=== PATIENT | male | born 1970 | race Caucasian/White ===

== ENCOUNTER 2020-02-08 12:23 | Observation (INO) ==
[2020-02-08] MEDS ORDERED: NORMAL SALINE 1,000 ML IV ONE (12:41)
[2020-02-08] MEDS ORDERED: DIATRIZOATE MEGLUMINE, SODIUM 30 ML BTL PO ONE (12:41)
[2020-02-08] MEDS ORDERED: MORPHINE SULFATE 2 MG/ML DISP.SYRIN IV ONE ×2 (12:41→18:03)
--- NOTE | 2020-02-08 12:52 | ERNOTE ---
Abdominal HPI - Narrative Date of Service: 02/08/20 - General Chief Complaint: Abdominal Pain Time Seen by Provider: 02/08/20 12:32 Source: patient Exam Limitations: no limitations - Immun/Allergies/Home Medications Immunizatons: IMMUNIZATION HX Immunizations Up to Date Yes History of Influenza Vaccine No Allergies/Adverse Reactions: Allergies latex Allergy (Verified 02/08/20 12:30) swelling, itchiness when worn for prolonged period of time Home Medications: HOME MEDICATIONS NK 02/08/20 [Last Taken Unknown] - History of Present Illness Narrative: Patient presents to the ED for RLQ pain. This pain started last night around midnight and has been gradually progressive. RLQ pain. Worse with palpation and going over bumps in the car. Nausea with it and progressive anorexia. Never had it before. Has not seen anyone else for this. No vomiting but nausea noted. No CP or SOB. No dysuria. Timing: constant, getting worse Quality: moderate Activities at Onset: none Modifying Factors - (Improves): Present: other - rest Modifying Factors - (Worsens): Present: other - palpation Associated Symptoms: Present: nausea. Absent: headache, back pain, fever/chills Prior Abdominal Problems: Present: none Prior Treatment: Absent: recently seen Review of Systems - Review of Systems Constitutional: Absent: fever EYE: Present: no symptoms reported ENT: Present: no symptoms reported Respiratory: Absent: shortness of breath Cardiology: Absent: chest pain Gastrointestinal/Abdominal: Present: abdominal pain Genitourinary: Absent: dysuria All Other Systems: All systems neg except as marked Medical History (Last Reviewed 02/08/20 @ 12:50 by Jono Maldonado MD) Undescended left testicle Surgical History: Surgical History (Last Reviewed 02/08/20 @ 12:50 by Jono Maldonado MD) History of orchiectomy, unilateral Presence of surgical screw in left hand spiral fracture, 3rd metacarpal Family History: Family History (Last Reviewed 02/08/20 @ 12:50 by Jono Maldonado MD) Father Prostate cancer Mother Heart disease Social History: (Last Reviewed 02/08/20 @ 12:50 by Jono Maldonado MD) Social History: Marital status: Tobacco: Smoking Status: Current every day smoker tobacco type: cigarettes Smoking cigarettes per day: 10 Alcohol: alcohol intake: current Alcohol type: beer alcohol intake frequency: a few times a month Substance Use: substance use type: does not use Dietary Habits: caffeine: Yes Physical Exam - Physical Exam General Appearance: Present: alert, no apparent distress Head Exam: Present: normal inspection, no evidence of injury Eye Exam: Normal inspection: bilateral, PERRL: bilateral Ears, Nose, Throat: Present: normal ENT inspection Neck: Present: normal inspection Respiratory: Present: no respiratory distress, normal breath sounds, no accessory muscle use, lungs clear Cardiovascular/Chest: Present: regular rate, rhythm, normal peripheral pulses Gastrointestinal/Abdominal: Present: normal bowel sounds, tenderness, rebound, other - RLQ pain. Absent: abnormal bowel sounds Back Exam: Absent: CVA tenderness (R), CVA tenderness (L) Extremity Exam: Present: normal inspection Neurological Exam: Present: alert, no motor/sensory deficits Skin Exam: Present: normal color, warm/dry Progress - Results and Orders Patient's Lab Results:: I have reviewed the patient's lab results. - Vital Signs Patient's Vital Signs:: I have reviewed the patient's vital signs. Vital Signs: Vital Signs 02/08/20 12:27 Temperature 36.9 C Pulse Rate 99 Respiratory Rate 14 Blood Pressure 143/89 H O2 Sat by Pulse Oximetry 96 - CT/Ultrasound CT/Ultrasound Narrative: I reviewed official radiology report for CT abd/pelvis - Progress/Reassessment Chief Complaint: Abdominal Pain Progress Note-Subjective: 02/08/20 15:43 Acute appendicitis. Uncomplicated. Patient informed. Dr Rodriguez in [facility] OR now, informed. Await General Surgery eval here. Departure Clinical Impression: Acute appendicitis - Departure Disposition: Still a patient Condition: Stable
[2020-02-08 12:56] LABS: Hematocrit 49.4 % (42.0-52.0); Hemoglobin 16.3 gm/dL (13.5-18.0); Mean Cell Volume 91.1 fl (78-100); Mean Corpuscular Hemoglobin 30.1 pg (27-31); Mean Platelet Volume 8.9 fl (8-11.3); Neutrophil # 12.9 K/mm3 (1.3-6.0); Neutrophil % 81.4 % (42-75.0); Platelet Count 294 K/mm3 (150-450); Red Blood Count 5.42 M/mm3 (4.7-6.0); Red Cell Distribution Width 13.9 % (11.5-14.0); White Blood Count 15.9 K/mm3 (4.0-10.5)
[2020-02-08] MEDS ORDERED: ONDANSETRON HCL/PF 2 MG/ML VIAL ONE ×2 (13:09→20:57)
[2020-02-08 13:11] LABS: Albumin * 3.9 gm/dl (3.4-5.0); Anion Gap 12.5 mmol/L (6.8-13.8); BUN/Creatinine Ratio 18.6 (9.0-21.6); Bilirubin, Total 0.7 mg/dL (0.0-1.1); Ca. Corrected For Albumin 8.8 mg/dL (8.4-10.2); Carbon Dioxide 26.3 mmol/L (24-32.6); Potassium 3.8 mmol/L (3.4-4.6); Total Protein 7.2 gm/dL (6.2-8.2)
[2020-02-08 14:47] LABS: Urine Color Yellow
[2020-02-08 14:49] LABS: Urine Appearance Clear (CLEAR); Urine Bilirubin Negative (NEGATIVE); Urine Blood Negative /ul (NEGATIVE); Urine Ketone Negative (NEGATIVE)
[2020-02-08 14:50] LABS: Urine Nitrite Negative (NEGATIVE); Urine Protein Negative (NEGATIVE); Urine Specific Gravity 1.025 SP.GR. (1.005-1.030); Urine Urobilinogen Normal (NORMAL)
[2020-02-08 14:51] LABS: Urine Bacteria None Seen; Urine RBC 0-5 /hpf (0-5); Urine WBC 0-5 /hpf (0-5)
[2020-02-08] MEDS ORDERED: MORPHINE SULFATE 2 MG/ML DISP.SYRIN ONE (18:02)
--- NOTE | 2020-02-08 20:50 | HP ---
Chief Complaint - Chief Complaint Date of Service: 02/08/20 Time of Service: 20:42 Chief Complaint: acute appendicitis History of Present Illness: Started with abdominal pain today. Has become more severe and migrated to RLQ. Elevated WBC, direct and rebound tenderness RLQ and CT scan evidence of acute appendicitis. Medical History (Last Reviewed 02/08/20 @ 20:44 by Noé Rodriguez MD) Undescended left testicle Surgical History: Surgical History (Last Reviewed 02/08/20 @ 20:44 by Noé Rodriguez MD) History of orchiectomy, unilateral Presence of surgical screw in left hand spiral fracture, 3rd metacarpal Family History: Family History (Last Reviewed 02/08/20 @ 20:44 by Noé Rodriguez MD) Father Prostate cancer Mother Heart disease Social History: (Last Reviewed 02/08/20 @ 20:44 by Noé Rodriguez MD) Social History: Marital status: Tobacco: Smoking Status: Current every day smoker tobacco type: cigarettes Smoking cigarettes per day: 10 Alcohol: alcohol intake: current Alcohol type: beer alcohol intake frequency: a few times a month Substance Use: substance use type: does not use Dietary Habits: caffeine: Yes Review Of Systems (GEN) - Review of Systems Generalized/Overall Review: Present: Malaise. Absent: Chills, Fever EENTM: Present: No Symptoms Reported Respiratory: Present: Cough, Other - from cigarettes Cardiac: Absent: Chest Pain, Palpitations Abdominal: Present: Nausea, Abdominal Pain, Other - Heartburn, takes ranitidine prn. Absent: Vomiting Genitourinary: Present: No Symptoms Reported Musculoskeletal: Present: No Symptoms Reported Neurological: Present: No Symptoms Reported Skin: Present: No Symptoms Reported Endocrine: Present: No Symptoms Reported Immunizations: IMMUNIZATION HX Immunizations Up to Date Yes History of Influenza Vaccine No Allergies/Adverse Reactions: Allergies Allergy/AdvReac Type Severity Reaction Status Date / Time latex Allergy swelling, Verified 02/08/20 12:30 itchiness when worn for prolonged period of time Home Medications: HOME MEDICATIONS NK 02/08/20 [Last Taken Unknown] Exam - Exam Vital Signs: Vital Signs - Last Taken Temp 37.4 C 02/08/20 20:28 Pulse 82 02/08/20 20:28 Resp 18 02/08/20 20:28 BP 129/76 02/08/20 20:28 Pulse Ox 97 06/02/20 20:28 Constitutional: Present: Alert, Oriented x3, Cooperative, Well developed, Mild distress, Obese ENT Exam: Present: normal ENT inspection, other - Mallampati 3 airway Eye Exam: bilateral eye: normal inspection Neck: Present: full range of motion, normal inspection Respiratory: Present: lungs clear, other - patient will not leave mask on Cardiovascular/Chest: Present: regular rate, rhythm, no murmur Abdomen: Present: other - tender RLQ with rebound and guarding Extremity: Present: normal range of motion, no pedal edema, no calf tenderness Skin Exam: Present: normal color, warm/dry Neurologic: Present: telecommunications facility examiner II-XII nml as tested, normal cerebellar test, alert, oriented x 3 Appearance: Present: appropriate appearance, appropriate insight Eye contact: Present: cooperative Thoughts: Present: normal thought pattern Diagnostic Studies: Abnormal Lab Results 02/08/20 02/08/20 Range/Units 12:45 12:45 WBC 15.9 H (4.0-10.5) K/mm3 Immature Gran % (Auto) 0.50 H (0.001-0.429) % Immature Gran # (Auto) 0.08 H (0.000-0.0310) K/mm3 Neutrophils % 81.4 H (42-75.0) % Lymphocytes % 9.2 L (20-51) % Neutrophils # 12.9 H (1.3-6.0) K/mm3 Lymphocytes # 1.47 L (1.5-3.5) k/mm3 Monocytes # 1.1 H (0.0-1.0) k/mm3 Random Glucose 114 H (70-110) mg/dL Laboratory Results WBC 15.9 K/mm3 (4.0-10.5) H 02/08/20 12:45 RBC 5.42 M/mm3 (4.7-6.0) 02/08/20 12:45 Hgb 16.3 gm/dL (13.5-18.0) 02/08/20 12:45 Hct 49.4 % (42.0-52.0) 02/08/20 12:45 MCV 91.1 fl (78-100) 02/08/20 12:45 MCH 30.1 pg (27-31) 02/08/20 12:45 MCHC 33.0 g/dl (32-36) 02/08/20 12:45 RDW 13.9 % (11.5-14.0) 02/08/20 12:45 Plt Count 294 K/mm3 (150-450) 02/08/20 12:45 MPV 8.9 fl (8-11.3) 02/08/20 12:45 Immature Gran % (Auto) 0.50 % (0.001-0.429) H 02/08/20 12:45 Immature Gran # (Auto) 0.08 K/mm3 (0.000-0.0310) H 02/08/20 12:45 Neutrophils % 81.4 % (42-75.0) H 02/08/20 12:45 Lymphocytes % 9.2 % (20-51) L 02/08/20 12:45 Monocytes % 7.0 % (0.0-9) 02/08/20 12:45 Eosinophils % 1.3 % (0.0-3.0) 02/08/20 12:45 Basophils % 0.6 % (0.0-1.0) 02/08/20 12:45 Nucleated RBC % 0.0 k/mm3 (0-1) 02/08/20 12:45 Neutrophils # 12.9 K/mm3 (1.3-6.0) H 02/08/20 12:45 Lymphocytes # 1.47 k/mm3 (1.5-3.5) L 02/08/20 12:45 Monocytes # 1.1 k/mm3 (0.0-1.0) H 02/08/20 12:45 Eosinophils # 0.2 k/mm3 (0.0-0.7) 02/08/20 12:45 Absolute Basophils 0.1 k/mm3 (0.0-0.1) 02/08/20 12:45 Sodium 137 mmol/L (132-142) 02/08/20 12:45 Plasma Sodium 137 mmol/L (130-142) 02/08/20 12:45 Potassium 3.8 mmol/L (3.4-4.6) 02/08/20 12:45 Chloride 102 mmol/L (97-106) 02/08/20 12:45 Carbon Dioxide 26.3 mmol/L (24-32.6) 06/02/20 12:45 Anion Gap 12.5 mmol/L (6.8-13.8) 02/08/20 12:45 BUN 19 mg/dL (6-23) 02/08/20 12:45 Creatinine 1.02 mg/dL (0.4-1.4) 02/08/20 12:45 Est GFR (Non-Af Amer) 83 mL/min (60-130) 02/08/20 12:45 BUN/Creatinine Ratio 18.6 (9.0-21.6) 02/08/20 12:45 Random Glucose 114 mg/dL (70-110) H 02/08/20 12:45 Calcium 9.0 mg/dL (7.9-10.9) 02/08/20 12:45 Calcium Adj for Albumin 8.8 mg/dL (8.4-10.2) 02/08/20 12:45 Total Bilirubin 0.7 mg/dL (0.0-1.1) 02/08/20 12:45 AST 16 U/L (0-48) 02/08/20 12:45 ALT 29 U/L (19-67) 02/08/20 12:45 Alkaline Phosphatase 74 U/L (50-170) 02/08/20 12:45 Total Protein 7.2 gm/dL (6.2-8.2) 02/08/20 12:45 Albumin 3.9 gm/dl (3.4-5.0) 02/08/20 12:45 Amylase 33 U/L (25-115) 02/08/20 12:45 Lipase 96 U/L (73-393) 02/08/20 12:45 Urine Color Yellow 02/08/20 14:20 Urine Appearance Clear (CLEAR) 02/08/20 14:20 Urine pH 6.0 pH (5.0-7.0) 02/08/20 14:20 Ur Specific [place] 1.025 SP.GR. (1.005-1.030) 02/08/20 14:20 Urine Protein Negative mg/dL (NEGATIVE) 02/08/20 14:20 Urine Glucose (UA) Negative mg/dL (NEGATIVE) 02/08/20 14:20 Urine Ketones Negative mg/dL (NEGATIVE) 02/08/20 14:20 Urine Blood Negative /ul (NEGATIVE) 02/08/20 14:20 Urine Nitrate Negative (NEGATIVE) 02/08/20 14:20 Urine Bilirubin Negative mg/dl (NEGATIVE) 02/08/20 14:20 Urine Urobilinogen Normal EU/dl (NORMAL) 02/08/20 14:20 Ur Leukocyte Esterase Negative /ul (NEGATIVE) 02/08/20 14:20 Urine RBC 0-5 /hpf (0-5) 02/08/20 14:20 Urine WBC 0-5 /hpf (0-5) 02/08/20 14:20 Ur Epithelial Cells 0-5 /hpf (0-5) 02/08/20 14:20 Urine Bacteria None seen (NONE) 02/08/20 14:20 Urine Culture Comments No culture indicated 02/08/20 14:20 CT shows acute appendicitis Assessment/Plan - Assessment/Plan (1) Acute appendicitis Assessment: Explained appendicitis and appendectomy. Risks, possible complications explained along with the expected post-op course. After an interactive discussion, his questions were answered to his apparent satisfaction and he has given informed consent for appendectomy. SCD's, IV Mefoxin, chlorhexidine wipes. Problem: Acute
--- NOTE | 2020-02-08 20:51 | ANES ---
Anesthesia Pre Procedure Eval Vitals/Labs: Last Vital Signs Temp 37.4 C 02/08/20 20:28 Pulse 82 02/08/20 20:28 Resp 18 02/08/20 20:28 BP 129/76 02/08/20 20:28 Pulse Ox 97 02/08/20 20:28 HOME MEDICATIONS NK 02/08/20 [Last Taken Unknown] Allergies/Adverse Reactions: Allergies Allergy/AdvReac Type Severity Reaction Status Date / Time latex Allergy swelling, Verified 02/08/20 12:30 itchiness when worn for prolonged period of time - Planned Procedure Planned Procedure: appendectomy Medication List Reviewed:: Yes Allergies Verified: Yes Medical History (Last Reviewed 02/08/20 @ 20:46 by Mike Vega CRNA) Undescended left testicle Surgical History (Last Reviewed 02/08/20 @ 20:46 by Mike Vega CRNA) History of orchiectomy, unilateral Presence of surgical screw in left hand spiral fracture, 3rd metacarpal Family History (Last Reviewed 02/08/20 @ 20:46 by Mike Vega CRNA) Father Prostate cancer Mother Heart disease - Family Anesthesia History Family History:: no untoward family reactions to anesthesia, no familial bleeding tendencies, no family history of clotting disorders, no family history of premature - Airway/Neck/Teeth Within Normal Limits:: Yes Teeth Condition: intact Neck Exam: full range of motion Mallampatti Score: 3 Thyromental (T-M) distance: > 6 cm Mandibulo Hyoid distance: > 3 cm - Respiratory Respiratory Physical: lungs clear Smoking Status: Current every day smoker - 0.5ppd Discussed smoking cessation including day of surgery: Yes - last at 0400 Sleep Apnea currently treated: No Sleep Apnea by current assessment: Yes - by anatomy Discussed Risks/Treatment of STARLA: Yes - Cardiovascular Tolerate Activity: Fair Heart Sounds: S1 & S2, Regular - Gastrointestinal NPO since: barium at 1430 - Anesthesia Assessment and Plan ASA Class: PS, II Anesthesia Type Plan: General ET
[2020-02-08] MEDS ORDERED: CEFOXITIN SODIUM 2 GM in DEXTROSE 5 % IN WATER 100 ML IV ONE ×2 (20:52)
[2020-02-08] MEDS ORDERED: SCOPOLAMINE HYDROBROMIDE 1.5 MG PATC TD ONE (20:57)
[2020-02-08] MEDS ORDERED: KETOROLAC TROMETHAMINE 30 MG/ML VIAL ONE (20:57)
[2020-02-08] MEDS ORDERED: GLYCOPYRROLATE 0.2 MG/ML VIAL ONE (20:57)
[2020-02-08] MEDS ORDERED: NEOSTIGMINE METHYLSULFATE 1 MG/ML VIAL ONE (20:57)
[2020-02-08] MEDS ORDERED: DEXAMETHASONE SODIUM PHOSPHATE 10 MG/ML VIAL ONE (20:57)
[2020-02-08] MEDS ORDERED: ROCURONIUM BROMIDE 10 MG/ML VIAL ONE ×2 (20:58→22:23)
[2020-02-08] MEDS ORDERED: SUCCINYLCHOLINE CHLORIDE 20 MG/ML VIAL ONE (20:58)
[2020-02-08] MEDS ORDERED: PROPOFOL VIAL IV ONE (20:58)
[2020-02-08] MEDS ORDERED: SEVOFLURANE 250 ML BTL IH ONE (20:58)
[2020-02-08] MEDS ORDERED: LIDOCAINE HCL 50 ML VIAL ONE (20:58)
[2020-02-08] MEDS ORDERED: fentaNYL CITRATE/PF 50 MCG/ML AMPUL ONE (21:18)
[2020-02-08] MEDS ORDERED: BUPIVACAINE HCL/EPINEPHRINE/PF 30 ML VIAL IJ ONE ×2 (21:29→22:55)
[2020-02-08] MEDS ORDERED: MUPIROCIN 22 APPL TUBE TP ONE ×2 (21:29→23:41)
[2020-02-08] MEDS: RINGER'S SOLUTION,LACTATED 1,000 ML IV PRN (22:05)
[2020-02-09] MEDS ORDERED: HYDROcodone/ACETAMINOPHEN 1 EACH TABLET PO PRN (00:13)
[2020-02-09] MEDS ORDERED: ONDANSETRON HCL/PF 2 MG/ML VIAL IV PRN (00:13)
[2020-02-09] MEDS ORDERED: HYDROmorphone HCL 1 MG/ML DISP.SYRIN IV PRN (00:13)
--- NOTE | 2020-02-09 00:22 | OR ---
Operative Report - Dictated Report Narrative: Date of operation 02/08/2020 Preoperative diagnosis: Acute appendicitis Postoperative diagnosis: Severe acute appendicitis with localized peritonitis Operation: Laparoscopic appendectomy Surgeon: HALEY Rodriguez MD Anesthesia: GenHarmony Vega CRNA COVID-19 precaution protocols followed Indications for procedure: The patient is a 49-year-old male who presented to the emergency room with a 1 day history of abdominal pain. He was found to have right lower quadrant tenderness and rebound, elevated white blood cell count, and CT scan evidence of an acutely inflamed appendix Findings: Advanced appendicitis with localized peritonitis. Narrative of procedure: The patient was identified preoperatively, and prior to the administration of anesthetic a multidisciplinary timeout was observed. The patient was placed supine, SCDs were applied, and 2 g of IV Mefoxin administered. Penryn scope assisted endotracheal intubation was performed and general anesthetic was administered. After a 21-minute wait, the patient's abdomen was prepped with Betadine solution, and a generous operating field outlined with 4 sterile towels. The remainder the patient was covered with a sterile disposable drape. A transverse infraumbilical skin incision was made, and dissection was carried along the umbilical stalk until the fascia of the linea alba was encountered. This was incised. The peritoneum was elevated and incised to allow entry into the abdomen under direct vision. A Hussan cannula was placed and the abdomen insufflated with CO2. The laparoscopic camera was introduced and the abdomen briefly explored. Those portions of the liver, stoma ch, omentum, small and large intestine visualized appeared normal. There was marked inflammation in the right lower quadrant with inflammatory adhesions and exudate adjacent to the apex of the cecum. Next under direct vision, 2 additional working ports were inserted through separate skin incisions, one in the suprapubic area one in the left lower quadrant. The apex of the cecum was retracted cephalad. The stump of the appendix was identified and followed distally. There was intense inflammation along the entire length of the appendix which was gradually liberated by blunt dissection. A window was created adjacent to the appendiceal base. The base of the appendix was then transected with a GREER stapling device. The mesoappendix was then divided by several applications of the GREER stapler. 2 additional clips were placed on one small bleeding vessel. The appendix was then placed in an Endobag and parked in the right lower quadrant. There were several fecaliths identified adjacent to the appendix, and these were fiore into the Endobag. The right lower quadrant was then suctioned completely clean. The stump of the appendix was seen to be gas and liquid tight. The mesoappendix appeared hemostatic. The small working ports were then withdrawn under direct vision to ensure entry site hemostasis. The appendix was removed in conjunction with the Hussan cannula. The pneumope ritoneum was allowed to escape, and after receiving a correct sponge needle and instrument count attention was turned to closing the abdomen. The fascia and peritoneum at the umbilicus were approximated with interrupted sutures of #1 Vicryl. Subcutaneous space at the umbilicus was obliterated with a suture of 3-0 chromic. Skin incisions were approximated with interrupted vertical mattress sutures of 4-0 nylon. The operative sites were washed and dried. Dressings of Bactroban ointment and large Band-Aids were applied to the small port sites. The umbilical incision was dressed with Bactroban ointment, 2 x 2, large Band-Aid, and Medipore tape. The operative procedure was terminated at this point. There was no measurable blood loss. 0.5% Marcaine with epinephrine was used for local anesthetic infiltration area the appendix was submitted to pathology. The patient tolerated the anesthetic and procedure well without complication and was transferred to the recovery room awake, extubated, and in stable condition. Reviewed and electronically signed
--- NOTE | 2020-02-09 00:37 | ANES ---
Post Anesthesia Discharge - Transfer of Care Transfer of Care handoff given to nurse: Yes - Discharge from PACU Discharge from PACU when meets criteria: Yes - Comfortable in PACU.
--- NOTE | 2020-02-09 00:50 | ANES ---
Post Anesthesia Assessment - Vital Signs Vitals: Last Vital Signs Temp 36.9 C 02/09/20 00:45 Pulse 97 02/09/20 00:45 Resp 20 02/09/20 00:45 BP 131/85 02/09/20 00:45 Pulse Ox 96 02/09/20 00:45 Airway Patency: Normal - Mental Status Level Of Consciousness: Awake, Alert, Appropriate - Pain Level Pain Score: 0 - N/V Assessment Nausea/Vomiting Presence: None Dehydration:: No
[2020-02-09] MEDS: RINGER'S SOLUTION,LACTATED 1,000 ML IV PRN ×2 (01:40→13:14)
[2020-02-09] MEDS: CEFOXITIN SODIUM 1 GM in DEXTROSE 5 % IN WATER 100 ML IV SCH ×6 (04:31→15:54)
[2020-02-09] MEDS ORDERED: PANTOPRAZOLE SODIUM 40 MG in NORMAL SALINE 100 ML IV SCH (07:15)
--- NOTE | 2020-02-09 15:39 | DS ---
(1) Acute appendicitis Problem: Acute Qualifiers: Acute appendicitis type: with localized peritonitis Appendicitis gangrene presence: with gangrene Date of Discharge:: 02/09/20 Hospital Course: He underwent a laparoscopic appendectomy for severe acute appendicitis with localized peritonitis late night 02/08/20. There was marked inflammation and several liberated fecaliths, so he was placed in observation for additional antibiotics, pain control, and to ensure adequate p.o. intake prior to discharge. His vital signs remained stable. His pain was markedly improved. His dressings remained dry. He was able to be up independently and tolerated a general diet. He will be discharged home with instructions not to lift and not to drive. He is given a work excuse. He prefers to use [id number] Tylenol or ibuprofen for discomfort. A prescription for Augmentin 875 p.o. twice daily for 5 days was transmitted to cover possibility of surgical wound infection. He is to leave his current dressings dry and intact for 48 hours but then may shower and change the dressings daily or as needed. He has phone numbers to call for questions or concerns. A return office appointment will be made for 02/17/2020. Procedures Performed: see notes below - Laparoscopic appendectomy Results and Findings: Lab Pending Results 02/08/20 12:45: WBC 15.9 H, RBC 5.42, Hgb 16.3, Hct 49.4, MCV 91.1, MCH 30.1, MCHC 33.0, RDW 13.9, Plt Count 294, MPV 8.9, Immature Gran % (Auto) 0.50 H, Immature Gran # (Auto) 0.08 H, Neutrophils % 81.4 H, Lymphocytes % 9.2 L, Monocytes % 7.0, Eosinophils % 1.3, Basophils % 0.6, Nucleated RBC % 0.0, Neutrophils # 12.9 H, Lymphocytes # 1.47 L, Monocytes # 1.1 H, Eosinophils # 0.2, Absolute Basophils 0.1 02/08/20 12:45: Sodium 137, Plasma Sodium 137, Potassium 3.8, Chloride 102, Carbon Dioxide 26.3, Anion Gap 12.5, BUN 19, Creatinine 1.02, Est GFR (Non-Af Amer) 83, BUN/Creatinine Ratio 18.6, Random Glucose 114 H, Calcium 9.0, Calcium Adj for Albumin 8.8, Total Bilirubin 0.7, AST 16, ALT 29, Alkaline Phosphatase 74, Total Protein 7.2, Albumin 3.9, Amylase 33, Lipase 96 02/08/20 14:20: Urine Color Yellow, Urine Appearance Clear, Urine pH 6.0, Ur Specific [place] 1.025, Urine Protein Negative, Urine Glucose (UA) Negative, Urine Ketones Negative, Urine Blood Negative, Urine Nitrate Negative, Urine Bilirubin Negative, Urine Urobilinogen Normal, Ur Leukocyte Esterase Negative, Urine RBC 0-5, Urine WBC 0-5, Ur Epithelial Cells 0-5, Urine Bacteria None seen, Urine Culture Comments No culture indicated 02/08/20 23:51: Pathology Specimen Spec to path Discharge Location: Home Disposition: Home self-care Condition: Good Discharge Activity: Activity as tolerated, No Lifting Discharge Diet: General/regular food Problem Oriented Discharge Instructions to Patient/Family: Laparoscopic Appendectomy, Adult, Care After, [id number] Additional Patient Instructions (free text): make office apt for 02/17/20 [phone] Complete Home Medications List: Complete Home Medication List: Amox Tr/Potassium Clavulanate [Augmentin 875-125 Tablet] 875 mg PO Q12H #10 tab 02/09/20
[2020-02-09 16:16] VITALS: BP 115/71
== END 2020-02-09 16:45 | disposition home or self-care (01) ==
LOC: ER 12:23 → AMB 20:41 → SCU 20:41 → AMB 22:02
PROVIDERS: ADMIT Surgery; ATTEND Surgery
CPT/HCPCS: 36415; 74177; 80053; 81001; 82150; 83690; 85025; 88304; 88888; 96365; 96366; 96375; 96376; 99285; G0378; J2405; Q9963; Q9967